=== PATIENT | female | born 1965 | race African-American/Black ===

== ENCOUNTER → 2017-05-21 | Outpatient (CLI) | payer BC ==
--- NOTE | 2017-05-21 10:35 | RAD ---
MR of the right knee Indication: Generalized pain for 3 months after an injury. Technique: The standard multiplanar sequences are obtained. Findings: Medial meniscus:Intact. Lateral meniscus: Intact. Anterior cruciate ligament: Intact Posterior cruciate ligament: Intact Medial collateral ligament: Intact. Iliotibial band: Intact. Posterolateral structures: Fibular collateral ligament, biceps tendon and popliteus tendon are intact. Extensor mechanism: Intact. Fluid: No significant joint effusion. No significant Fragoso's cyst. Articular cartilage -patellofemoral joint: Mild lateral patellar tilt and subluxation. At least mild chondromalacia of the patella, at least moderate at the femoral trochlea. -medial compartment: No acute defect. -lateral compartment: No acute defect. Bones: Geographic lesion within the proximal tibial metaphysis measures 2.5 cm. Margins are slightly lobulated with punctate hyperintense T2 signal foci and some internal areas of hypointense T2 signal. Appearance and location is typical for an enchondroma. Soft tissue: Trace fluid in the popliteal fossa. Impression: 1. No meniscal tear or internal derangement. 2. 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 Electronically signed by: Adelfo Rodgers MD (05/21/2017 10:31 AM) [id number]
== END | disposition home or self-care (01) ==
LOC: MRI 08:06
PROVIDERS: ATTEND Family Medicine
DX: M94.261 Chondromalacia, right knee (principal)
CPT/HCPCS: 73721